=== PATIENT | male | born 1945 | race Caucasian/White ===

== ENCOUNTER 2022-04-26 10:22 | Outpatient (CLI) | payer MEDICARE, BC ==
[2022-04-26] MEDS ORDERED: Iopamidol 300 61% 100 ML VIAL FS ONE (14:23)
== END 2022-04-26 10:23 | disposition home or self-care (01) ==
LOC: CSHCT 10:22
PROVIDERS: ATTEND Internal Medicine Gastroenterology
DX: R19.7 Diarrhea, unspecified (principal); Z86.010 Personal history of colon polyps; R79.89 Other specified abnormal findings of blood chemistry; K80.20 Calculus of gallbladder without cholecystitis without obstruction; K82.8 Other specified diseases of gallbladder; N20.0 Calculus of kidney; K57.30 Diverticulosis of large intestine without perforation or abscess without bleeding
CPT/HCPCS: 74177; 82565